=== PATIENT | male | born 1980 | race Caucasian/White ===

== ENCOUNTER 2018-01-05 10:40 | Emergency (ER) | payer SELFPAY ==
[2018-01-05 10:44] VITALS: BMI 28.3
--- NOTE | 2018-01-05 10:51 | PDOC ---
History of Present Illness - General Chief Complaint: Lightheaded Stated Complaint: MED EVAL Time Seen by Provider: 01/05/18 10:43 History Source: Patient Exam Limitations: No Limitations - History of Present Illness Initial Comments: 01/05/18 13:16 C[place] 37 YOM with no medical history presenting with acute onset of lightheadedness/dizziness since 9am this morning after eating special brownie. Also endorses drinking 3 x 6 pack of beer last night (total 18 drinks) last drink at 5am this morning. denies chronic abuse. No cp, sob, headache, f/c, AP, vomiting, diarrhea, weakness or paresthesias. Past History - Past Medical History Allergies/Adverse Reactions: Allergies Allergy/AdvReac Type Severity Reaction Status Date / Time No Known Allergies Allergy Verified 01/05/18 10:43 Home Medications: Ambulatory Orders NK [No Known Home Medication] 01/05/18 - Suicide/Smoking/Psychosocial Hx Smoking History: Unknown if ever smoked Hx Alcohol Use: Yes ("last night") Review of Systems - Review of Systems Able to Perform ROS?: Yes Comments:: 01/05/18 10:56 Constitutional: no fevers or chills. HEENT: no headache. No congestion. No visual/hearing disturbances. CVS: no cp or syncope. +palpitations. Resp: no sob. No cough. Abdomen: no abdominal pain, vomiting. +nausea. Genitourinary: no urinary sx, hematuria. MUSCULOSKELETAL: No neck or back pain. SKIN: no redness or skin changes, no discharge, no rash. No wounds. Hematologic: no easy bruising/bleeding. NEUROLOGIC: No headache, LOC or altered mental status. No weakness, numbness or tingling. +DIZZINESS All other systems reviewed and negative, or as documented in HPI. *Physical Exam - Vital Signs Last Vital Signs Temp Pulse Resp BP Pulse Ox 149 H 18 138/76 96 01/05/18 10:43 01/05/18 10:43 01/05/18 10:43 01/05/18 10:43 - Physical Exam Comments: 01/05/18 10:56 General: malaised appearing, diaphoretic HEENT: NCAT, PERRL, EOMI, clear conjunctiva, anicteric, dry mucus membranes, clear oropharynx, no oral lesions.. Neck: neck supple, FROM Resp: CTAB, normal and even respirations, no respiratory distress CVS: +tachycardic. no murmurs, bounding peripheral pulses throughout, no peripheral edema Abdomen: soft, NTND, no peritoneal signs. Back: nontender, normal inspection and ROM MSK: no edema, HICKMAN x4, ROM intact. No clubbing or cyanosis. normal bulk and tone. Extrem: no calf tenderness Neuro: alert, oriented appropriately; no focal neurologic deficits Skin: warm and well perfused, cap refill <2 sec, normal color ED Treatment Course - LABORATORY CBC & Chemistry Diagram: 01/05/18 10:45 01/05/18 10:45 Medical Decision Making - Medical Decision Making 01/05/18 13:15 C[place]UN 37 YOM with no medical history presenting with acute onset of lightheadedness/dizziness since 9am this morning after eating special brownie. Also endorses drinking 3 x 6 pack of beer last night, last drink at 5am this morning. No cp, sob, headache, f/c, AP, vomiting, diarrhea, weakness or paresthesias. ddx pancreatitis, hepatitis, dehydration, ETOH intoxication, drug side effect, marijuana intox. electrolyte/metabolic derangements. cocaine intox, marijuana intox. Vital signs reviewed, wnl. Prior notes reviewed, including admissions, discharges and consultations. laboratory results and imaging reviewed, basic labs and lytes wnl, notable for mild lactic acidosis of 2.4, likely etoh related, will repeat after fluids. Normal lipase and LFTs. ETOH elevated ~100, Cardiac panel_negative CK and trop. EKG sinus tachycardia at 149 bpm, no interval abnormalities, narrow QRS, ST and T wave segments and morphology normal. Nonspecific T wave abnormalities, rate related ED course: no acute events, remained stable. Clinically improved after interventions, including 2 liters IVF. tachycardia resolving. No cp or sob. Zofran for nausea, no emesis here. Tachycardia downtrending, no fevers and comfortable througout stay sobriety hold in ED, no additional events, VS wnl. Utox with cocaine, marijuana and +ETOH c/w intoxication gait stable, awake and alert, feels improved, no sx. Dispo: discharge in stable condition, pcp referral, avoid toxic ingestants and drug use. 01/05/18 13:17 01/05/18 16:19 *DC/Admit/Observation/Transfer Diagnosis at time of Disposition: Cocaine intoxication, Alcohol intoxication, Marijuana intoxication - Discharge Dispostion Disposition: HOME Condition at time of disposition: Improved Decision to Admit order: No - Referrals Referrals: [facility] [Provider Group] [facility] [Provider Group] - Patient Instructions Printed Discharge Instructions: DI for Cocaine Use Disorder, Getting to the Heart of a Healthy Diet: Alcohol, DI for Alcohol Poisoning, DI for Drug Abuse and Drug Addiction Print Language: LITHUANIAN - Post Discharge Activity
[2018-01-05] MEDS ORDERED: SODIUM CHLORIDE 0.9% 500 ML INFUS.BAG IV ONE ×2 (10:54)
[2018-01-05 11:13] LABS: BASO % 0.6 % (0-2.0); EOS % 1.5 % (0-4.5); HEMATOCRIT 42.5 % (35.4-49); HEMOGLOBIN 15.1 GM/dL (11.7-16.9); LYMPH % 49.3 % (8-40); MCH 31.4 pg (25.7-33.7); MCHC 35.5 g/dl (32.0-35.9); MEAN CELL VOLUME 88.4 fl (80-96); MEAN PLT VOLUME 8.4 fl (7.5-11.1); MONO % 5.4 % (3.8-10.2); NEUT % 43.2 % (42.8-82.8); PLATELET COUNT 234 K/MM3 (134-434); RBC 4.81 M/mm3 (4.00-5.60); RDW 14.1 % (11.9-15.9); WHITE BLOOD COUNT 8.9 K/mm3 (4.0-10.0)
[2018-01-05 11:30] LABS: ALBUMIN 4.2 g/dl (3.4-5.0); ALK PHOS 112 U/L (45-117); ANION GAP 12 MMOL/L (8-16); BILIRUBIN,TOTAL 0.4 mg/dL (0.2-1); BLOOD UREA NITROGEN 11 mg/dL (7-18); CALCIUM 8.5 mg/dL (8.5-10.1); CHLORIDE 108 mmol/L (98-107); CO2 22 mmol/L (21-32); CREATININE 0.9 mg/dL (0.55-1.3); GLUCOSE,RANDOM 162 mg/dL (74-106); LIPASE 208 U/L (73-393); POTASSIUM 3.4 mmol/L (3.5-5.1); SGOT/AST 35 U/L (15-37); SGPT/ALT 83 U/L (13-61); SODIUM 141 mmol/L (136-145); TOT PROT 8.1 g/dl (6.4-8.2)
[2018-01-05 11:51] LABS: INR 0.97 (0.83-1.09); PROTHROMBIN TIME (PATIENT) 11.4 SEC (9.7-13.0)
[2018-01-05] MEDS ORDERED: ONDANSETRON 4 MG/2 ML VIAL IVPUSH ONE (12:26)
--- NOTE | 2018-01-05 12:30 | EKG ---
Test Reason : Blood Pressure : / mmHG Vent. Rate : 146 BPM Atrial Rate : 146 BPM P-R Int : 128 ms QRS Dur : 078 ms QT Int : 270 ms P-R-T Axes : 062 065 011 degrees QTc Int : 420 ms SINUS TACHYCARDIA NONSPECIFIC ST AND T WAVE ABNORMALITY ABNORMAL ECG NO PREVIOUS ECGS AVAILABLE Confirmed by PATRICIO DELGADILLO MD ([id number]) on 01/05/2018 12:29:44 PM Referred By: Confirmed By:PATRICIO DELGADILLO MD
[2018-01-05] MEDS ORDERED: ONDANSETRON 4 MG/2 ML VIAL ONE (12:37)
[2018-01-05 13:29] LABS: URINE APPEARANCE CLEAR; URINE BILIRUBIN NEGATIVE (<2.0 mg/dL); URINE COLOR LTYELLOW; URINE GLUCOSE (UA) NEGATIVE (NEGATIVE); URINE KETONE NEGATIVE (NEGATIVE); URINE LEUK ESTERASE NEGATIVE (NEGATIVE); URINE NITRITE NEGATIVE (NEGATIVE); URINE PROTEIN NEGATIVE (NEGATIVE); URINE UROBILINOGEN NEGATIVE mg/dL (0.2-1.0)
[2018-01-05 13:55] LABS: METHADONE, UR NEGATIVE ng/ml (CUTOFF=300); OPIATES, URI NEGATIVE ng/ml (CUTOFF=300); PHENCYCLIDINE,URINE NEGATIVE ng/ml (CUTOFF=25); URINE AMPHETAMINES NEGATIVE ng/ml (CUTOFF=500); URINE BARBITURATES NEGATIVE ng/ml (CUTOFF=200); URINE BENZODIAZEPINES NEGATIVE ng/ml (CUTOFF=200)
[2018-01-05 13:57] LABS: COCAINE, UR POSITIVE ng/ml (CUTOFF=300)
[2018-01-05 15:58] VITALS: BP 109/62; PULSE 105; TEMP 99.4
== END 2018-01-05 16:28 | disposition home or self-care (01) ==
LOC: JER 10:40
PROC: 3E033GC Introduction of Other Therapeutic Substance into Peripheral Vein, Percutaneous Approach (ICD-10-PCS; principal; 2018-01-05)
DX: F10.929 Alcohol use, unspecified with intoxication, unspecified (principal); F14.929 Cocaine use, unspecified with intoxication, unspecified; F12.929 Cannabis use, unspecified with intoxication, unspecified
CPT/HCPCS: 36415; 80053; 80307; 81003; 82550; 82553; 83605; 83690; 84443; 84484; 85025; 85610; 93005; 93010; 99285-25